=== PATIENT | male | born 1965 | race Hispanic/Latino ===

== ENCOUNTER 2021-02-12 18:05 | Emergency (ER) | payer MEDICAID ==
[2021-02-12 18:22] VITALS: BP 109/57
[2021-02-12] MEDS ORDERED: LIDOCAINE (2%) 20 MG/1 ML VIAL 20 ML MDV INFILTRATI STA (20:54)
[2021-02-12] MEDS ORDERED: TETANUS,DIPH,PERTUSS(ACELL) VACCINE 0.5 ML SYRINGE IM ONE (20:54)
--- NOTE | 2021-02-12 21:35 | Emergency Department Report ---
ED Lower Extremity HPI - General Chief Complaint: Wound/Laceration Stated Complaint: CUT LEG Time Seen by Provider: 02/12/21 20:54 Source: patient Mode of arrival: Ambulatory Limitations: No Limitations - History of Present Illness Initial Comments: 55-year-old male with asthma department status post accidental laceration to the right lower extremity while walking through his garage area tripped and struck his leg against lumbar resulting in a linear vertical laceration to the anterior right lower extremity wound which is dull throbbing and painful and bleeding. Is patient still ambulatory and has full sensation MD Complaint: leg injury Injury: Leg: Right Type of Injury: laceration Place: home Severity: mild, moderate Improves With: nothing Worsens With: movement, palpation Context: direct blow Associated Symptoms: ambulatory. denies: swelling, numbness - Related Data Previous Rx's Medication Instructions Recorded Last Taken Type Ibuprofen [Motrin 800 MG tab] 800 mg PO Q8HR PRN #30 tablet 09/21/15 Unknown Rx Chlorhexidine Gluconate [Hibiclens] 10 ml TP BID #240 liquid 02/12/21 Unknown Rx Allergies Allergy/AdvReac Type Severity Reaction Status Date / Time No Known Allergies Allergy Verified 02/12/21 18:18 ED Review of Systems ROS: Stated complaint: CUT LEG Other details as noted in HPI Comment: All other systems reviewed and negative ED Past Medical Hx - Past Medical History Hx Hypertension: Yes Hx Heart Attack/AMI: No Hx Congestive Heart Failure: No Hx Diabetes: No Hx Deep Vein Thrombosis: No Hx Pulmonary Embolism: No Hx GERD: (pancreatitis intermittent) Hx Liver Disease: Yes (cirrhosis, paracentesis in the past but none in several years) Hx Renal Disease: No Hx Sickle Cell Disease: No Hx Arthritis: No Hx Seizures: No Hx Kidney Stones: No Hx Asthma: No Hx COPD: Yes Hx Tuberculosis: No Hx Dementia: No Hx HIV: No Additional medical history: pancreatitis DTs - Surgical History Hx Coronary Stent: No Hx Pacemaker: No Hx Internal Defibrillator: No - Social History Smoking Status: Current Every Day Smoker Substance Use Type: Alcohol - Medications Home Medications: Home Medications Medication Instructions Recorded Confirmed Last Taken Type Ibuprofen [Motrin 800 MG tab] 800 mg PO Q8HR PRN #30 tablet 09/21/15 Unknown Rx Chlorhexidine Gluconate [Hibiclens] 10 ml TP BID #240 liquid 02/12/21 Unknown Rx ED Physical Exam - General Limitations: No Limitations General appearance: alert, in no apparent distress - Head Head exam: Present: atraumatic, normocephalic - Eye Eye exam: Present: normal appearance, PERRL, EOMI - ENT ENT exam: Present: mucous membranes moist - Neck Neck exam: Present: normal inspection - Respiratory Respiratory exam: Present: normal lung sounds bilaterally. Absent: respiratory distress - Cardiovascular Cardiovascular Exam: Present: regular rate, normal rhythm. Absent: systolic murmur, diastolic murmur, rubs, gallop - GI/Abdominal GI/Abdominal exam: Present: soft, normal bowel sounds - Rectal Rectal exam: Present: deferred - Extremities Exam Extremities exam: Present: normal inspection, other (Laceration to the right lower extremity a linear full-thickness 8 cm bleeding nonpulsatile blood.) - Back Exam Back exam: Present: normal inspection - Neurological Exam Neurological exam: Present: alert, oriented X3 - Psychiatric Psychiatric exam: Present: normal affect, normal mood - Skin Skin exam: Present: warm, dry, intact, normal color. Absent: rash ED Course Vital Signs 02/12/21 18:18 Temperature 98.2 F Pulse Rate 111 H Respiratory 18 Rate Blood Pressure 109/57 [Left] O2 Sat by Pulse 96 Oximetry - Laceration /Wound Repair Right Leg Wound Location: lower extremity Wound Length (cm): 8 Irrigated w/ Saline (ccs): 50 Betadine Prep?: Yes Anesthesia: 1% Lidocaine Volume Anesthetic (ccs): 3 Wound Debrided: minimal Wound Repaired With: sutures Layer Closure?: No Sterile Dressing Applied?: Yes Progress: staple placement x 9 Critical care attestation.: If time is entered above; I have spent that time in minutes in the direct care of this critically ill patient, excluding procedure time. ED Disposition Clinical Impression: Stapled skin wound, Laceration of right lower leg Disposition: HOME / SELF CARE / HOMELESS Is pt being admited?: No Does the pt Need Aspirin: No Condition: Stable Instructions: Wound Care, Adult, Sutures, Kavitha, or Adhesive Wound Closure Additional Instructions: Wound was closed with kavitha. Please keep wound clean antibacterial soap and water and follow-up in 10 to 14 days to be evaluated for staple removal. Prescriptions: Chlorhexidine Gluconate [Hibiclens] 10 ml TP BID #240 liquid Referrals: [facility] [Provider Group] - 7-10 days
== END 2021-02-12 21:22 | disposition home or self-care (01) ==
LOC: ED 18:05
DX: S81.811A Laceration without foreign body, right lower leg, initial encounter (principal); W18.09XA Striking against other object with subsequent fall, initial encounter; Y93.89 Activity, other specified; Y92.89 Other specified places as the place of occurrence of the external cause; Y99.8 Other external cause status
CPT/HCPCS: 90471; 90715; 99282